=== PATIENT | male | born 1960 | race African-American/Black ===

== ENCOUNTER 2017-02-11 08:28 | Day surgery (SDC) | payer MEDICAID ==
[~2017-02-11] VITALS: Ht 177.8 cm; Wt 68.0 kg
[~2017-02-11 08:28] MED LIST: BALANCED SALT IRRIG SOLN COMB1 500ML OP NR
[2017-02-11] MEDS ORDERED: TROPICAMIDE 1% OPHTH DROPS 15ML LEFTEYE ONE (11:00)
[2017-02-11] MEDS ORDERED: PHENYLEPHRINE HCL 10% OPHTH DROPS 5ML LEFTEYE ONE (11:00)
[2017-02-11] MEDS ORDERED: CYCLOPENTOLATE HCL 1% OPHTH DROPS 2ML LEFTEYE ONE (11:00)
[2017-02-11] MEDS ORDERED: LACTATED RINGERS 1,000 ML IV SCH (12:00)
[2017-02-11] MEDS ORDERED: HYDROMORPHONE HCL/PF 2MG/ML CPJ IV PRN (13:00)
[2017-02-11] MEDS ORDERED: ONDANSETRON HCL 4MG/2ML VIAL IV PRN (13:00)
[2017-02-11] MEDS ORDERED: TRYPAN BLUE 0.5 ML DISP.SYRIN IO ONE (13:10)
[2017-02-11] MEDS ORDERED: MIDAZOLAM HCL 2 MG/2 ML VIAL ONE (13:11)
[2017-02-11] MEDS ORDERED: FENTANYL CITRATE/PF 50MCG/ML 2ML VIAL ONE (13:11)
[2017-02-11] MEDS ORDERED: PROPOFOL 200MG/20ML VIAL IV ONE (13:12)
[2017-02-11] MEDS ORDERED: HYALURONATE SODIUM 14 MG/ML 0.85ML SYRINGE IO ONE (13:13)
[2017-02-11] MEDS ORDERED: CYCLOPENTOLATE HCL 1% OPHTH DROPS 2ML ONE (14:19)
[2017-02-11] MEDS ORDERED: TROPICAMIDE 1% OPHTH DROPS 15ML ONE (14:19)
== END 2017-02-11 14:45 | disposition home or self-care (01) ==
LOC: OR 08:28
PROVIDERS: ATTEND Ophthalmology
DX: H25.22 Age-related cataract, morgagnian type, left eye (principal); F17.200 Nicotine dependence, unspecified, uncomplicated; F32.9 Major depressive disorder, single episode, unspecified
CPT/HCPCS: 66982; J2250; J2405; J3010; J3490; J7120; Q9957; V2632; J2704

== ENCOUNTER 2017-04-15 06:54 | Day surgery (SDC) | payer MEDICAID ==
[~2017-04-15] VITALS: Ht 177.8 cm; Wt 68.0 kg
[2017-04-15] MEDS ORDERED: PHENYLEPHRINE HCL 10% OPHTH DROPS 5ML RIGHTEYE SCH (07:50)
[2017-04-15] MEDS ORDERED: TROPICAMIDE 1% OPHTH DROPS 15ML RIGHTEYE SCH (07:50)
[2017-04-15] MEDS ORDERED: CYCLOPENTOLATE HCL 1% OPHTH DROPS 2ML RIGHTEYE SCH (07:50)
[2017-04-15] MEDS ORDERED: LACTATED RINGERS 1,000 ML IV SCH (08:00)
[2017-04-15] MEDS ORDERED: BALANCED SALT IRRIG SOLN COMB1 500ML OP SCH (08:30)
[2017-04-15] MEDS ORDERED: HYALURONATE SODIUM 14 MG/ML 0.85ML SYRINGE IO ONE (08:59)
[2017-04-15] MEDS ORDERED: FENTANYL CITRATE/PF 50MCG/ML 2ML VIAL ONE (09:28)
[2017-04-15] MEDS ORDERED: MIDAZOLAM HCL 2 MG/2 ML VIAL ONE (09:29)
[2017-04-15] MEDS ORDERED: PROPOFOL 200MG/20ML VIAL IV ONE (09:29)
[2017-04-15] MEDS ORDERED: DEXAMETHASONE 4MG/ML 1ML VIAL ONE (10:23)
[2017-04-15] MEDS ORDERED: TETRACAINE 0.5% OPHTH DROPS 4ML ONE (13:26)
[2017-04-15] MEDS ORDERED: ACETYLCHOLINE CHLORIDE INTRAOCULAR SOLUTION 1:100 ELECTROLYTE DILUENT IO ONE (13:26)
[2017-04-15] MEDS ORDERED: LIDOCAINE HCL/PF 2% 20 MG/ML 10ML VIAL ONE (13:26)
[2017-04-15] MEDS ORDERED: NEO/POLYMYX B SULF/DEXAMETH OPHTH OINT 3.5GM ONE (13:26)
[2017-04-15] MEDS ORDERED: PREDNISOLONE ACETATE 1% OPHTH DROPS 1ML ONE (13:26)
[2017-04-15] MEDS ORDERED: LIDOCAINE HCL 2%/EPINEPHRINE 1:100,000 20 ML VIAL INFIL ONE (13:26)
[2017-04-15] MEDS ORDERED: BALANCED SALT IRRIG SOLN 15ML ONE (13:26)
[2017-04-15] MEDS ORDERED: BUPIVACAINE HCL/PF 0.75% (7.5MG/ML) 10ML ONE (13:26)
[2017-04-15] MEDS ORDERED: CIPROFLOXACIN 0.3% OPHTH SOLN 2.5ML ONE (13:26)
== END 2017-04-15 11:00 | disposition home or self-care (01) ==
LOC: OR 06:54
PROVIDERS: ATTEND Ophthalmology
DX: H25.89 Other age-related cataract (principal)
CPT/HCPCS: 66983; 67005; J1100; J2250; J3010; J3490; J7120; V2632; J2704